=== PATIENT | male | born 2000 | race African-American/Black ===

== ENCOUNTER 2024-03-21 10:43 | Emergency (ER) | payer BC ==
[2024-03-21] MEDS ORDERED: Lidocaine 1% 10 ML MDV INJECT ONE (11:13)
[2024-03-21] MEDS: Lidocaine 1% 5 ML VIAL INJECT ONE (11:32)
[2024-03-21] MEDS: Octyl 2-Cyanoacrylate 1 g/1 mL 1 APPLIC PEN TOP ONE (12:59)
== END 2024-03-21 13:26 | disposition home or self-care (01) ==
LOC: MW.ED 10:43
DX: S61.210A Laceration without foreign body of right index finger without damage to nail, initial encounter (principal); W23.1XXA Caught, crushed, jammed, or pinched between stationary objects, initial encounter; Z88.0 Allergy status to penicillin; Z75.8 Other problems related to medical facilities and other health care
CPT/HCPCS: 12002; 73140; 99283; A9270; J3490

== ENCOUNTER 2024-03-22 22:07 | Emergency (ER) | payer BC ==
[2024-03-22] MEDS: Cephalexin 500 MG Cap PO ONE (23:32)
[2024-03-22] MEDS: Bacitracin Oint 1 GM U/D Packet TOP STA (23:43)
== END 2024-03-23 00:24 | disposition home or self-care (01) ==
LOC: MW.ED 22:07
DX: T81.49XA Infection following a procedure, other surgical site, initial encounter (principal); S61.210A Laceration without foreign body of right index finger without damage to nail, initial encounter; Z75.8 Other problems related to medical facilities and other health care; Z88.0 Allergy status to penicillin; X58.XXXA Exposure to other specified factors, initial encounter
CPT/HCPCS: 99283; A9270